=== PATIENT | female | born 1940 | race Caucasian/White ===

== ENCOUNTER → 2017-06-26 | Outpatient (CLI) | payer MEDICARE ==
[~2017-06-26] MED LIST: ALDACTONE 25MG25 MG PO; ALLOPURINOL100 MG PO; AMOXICOT500 MG PO; BISOPROLOL 5MG T5 MG PO; CLONAZEPAM0.5 MG PO; DAILY VITE1 TA2 PO; FLUOXETINE20 M2 PO; GLUCOSAMINE500 MG PO; Glucosamine500 MG PO; HUMULIN 70100 UNITS/ SC; HYDROCODONE BIT1 T39 PO; HYDROCODONE-APA1 TA2 PO; HYZAAR 12.5 MG-1 TA1 PO; INSULIN AS100 UNITS/ SC; Isosorbide Mono60 MG PO; KEFLEX 250MG.250 MG PO; KLOR-CON M2020 MEQ PO; LASIX20 MG PO; LIPITOR10 MG PO; LIQUID MAGNESI400 MG PO; MELOXICAM7.5 MG PO; METFORMIN 500M500 MG PO; METFORMIN ER500 MG PO; METOLAZONE2.5 MG PO; NEURONTIN 300M300 MG PO; NEURONTIN600 MG PO; NOVOLOG MI100 UNITS/ SC; NOVOLOG MI100 UNITS1 SC; PAXIL20 MG PO; PEDIA-LAX400 MG PO; PRAVASTATIN 40M40 MG PO; RISAQUAD1 CA1 PO; ROPINIROLE HYDRO1 MG PO; TORSEMIDE 20MG20 MG PO; TYLENOL ES500 MG PO; TYLENOL W/CODEI1 TA2 PO; VITAMIN B11000 MCG/M IM
== END ==
LOC: CARL-LAB 11:05
DX: E11.8 Type 2 diabetes mellitus with unspecified complications (principal)

== ENCOUNTER → 2017-08-06 | Outpatient (CLI) | payer MEDICARE ==
[2017-08-06 13:41] LABS: HEMOGLOBIN 14.1 g/dL (12.2-16.2); LYMPH # 1.6 K/mm3 (0.7-4.5); LYMPH % 28.9 % (10-50.0)
[2017-08-06 13:55] LABS: URINE BILIRUBIN - DIPSTICK NEGATIVE (NEG); URINE BLOOD NEGATIVE (NEG)
[2017-08-06 14:19] LABS: GFR (ESTIMATED) 26 ML/MIN (59-)
[2017-08-06 14:24] LABS: BUN 108 mg/dL (7-18)
== END ==
LOC: CARL-LAB 08:08
PROVIDERS: Internal Medicine Nephrology
DX: N18.4 Chronic kidney disease, stage 4 (severe) (principal)

== ENCOUNTER → 2017-08-29 | Outpatient (CLI) | payer MEDICARE ==
[2017-08-29 13:18] LABS: URINE BILIRUBIN - DIPSTICK NEGATIVE (NEG); URINE BLOOD NEGATIVE (NEG)
[2017-08-29 13:23] LABS: HEMOGLOBIN 13.5 g/dL (12.2-16.2); LYMPH # 1.7 K/mm3 (0.7-4.5); LYMPH % 28.9 % (10-50.0)
[2017-08-29 14:29] LABS: BUN 110 mg/dL (7-18)
[2017-08-29 14:30] LABS: GFR (ESTIMATED) 23 ML/MIN (59-)
== END ==
LOC: CARL-LAB 07:54
PROVIDERS: Internal Medicine Nephrology
DX: N18.4 Chronic kidney disease, stage 4 (severe) (principal); R82.90 Unspecified abnormal findings in urine

== ENCOUNTER → 2017-10-05 | Outpatient (CLI) | payer MEDICARE ==
--- NOTE | 2017-10-05 13:40 | CARDIOVASCULAR REPORT ---
"Venous Exam Indications: 729.5 Pain in limb. IMPRESSIONS 1. There is no evidence of significant Reflux. 2. No evidence of deep or superficial vein thrombosis involving the right lower extremity Right lower extremity venous duplex evaluation. Doppler flow study including spectral analysis, color and cannon scale imaging. Location: Vascular laboratory. Patient status: Outpatient. Tables: Venous flow and imaging: + +-------+ + + |Location |Overall|Flow properties |Comments | + +-------+ + + |Right common femoral |Patent |Normal phasicity; | | | | |spontaneous; normal | | | | |augmentation; | | | | |compressible | | + +-------+ + + |Right saphenofemoral |Patent |Compressible | | |junction | | | | + +-------+ + + |Right profunda femoral|Patent |Compressible | | + +-------+ + + |Right femoral |Patent |Normal phasicity; | | | | |spontaneous; normal | | | | |augmentation; | | | | |compressible | | + +-------+ + + |Right greater |Patent |Normal phasicity; | | |saphenous | |spontaneous; normal | | | | |augmentation; | | | | |compressible | | + +-------+ + + |Right popliteal |Patent |Normal phasicity; | | | | |spontaneous; normal | | | | |augmentation; | | | | |compressible | | + +-------+ + + |Right posterior tibial|Patent |Compressible |Small portion | | | | |unable to | | | | |visualize due to | | | | |edema. | + +-------+ + + |Right peroneal |Patent |Compressible |Small portion | | | | |unable to | | | | |visualize due to | | | | |edema. | + +-------+ + + |Right gastrocnemius |Patent |Compressible | | + +-------+ + + |Right soleal |Patent |Compressible | | + +-------+ + + (Report amended ) Electronically signed by: Shaun Hammer [id number]"
== END ==
LOC: RT 10:54
DX: M79.661 Pain in right lower leg (principal); R60.0 Localized edema

== ENCOUNTER → 2017-10-22 | Outpatient (CLI) | payer MEDICARE ==
[2017-10-22 17:40] LABS: HEMOGLOBIN 13.6 g/dL (12.2-16.2); LYMPH # 1.7 K/mm3 (0.7-4.5); LYMPH % 19.8 % (10-50.0)
[2017-10-22 20:26] LABS: BUN 88 mg/dL (7-18); GFR (ESTIMATED) 26 ML/MIN (59-)
--- NOTE | 2017-10-23 10:06 | RADIOLOGY REPORT PS360 ---
CHEST(2 VIEWS-NOT PORTABLE) HISTORY: Hypertension, chronic renal disease ENCOUNTER FOR PREPROCEDURAL CARDIOVASCULAR EXAM, TYPE 2 DI ORDERING PHYSICIAN: Inocencio Guardado MD PATIENT AGE: 77 years COMPARISON: 11/04/2014 FINDINGS: Unremarkable cardiovascular structures. There is chronic coarsening of bronchovascular markings suggesting chronic peribronchial inflammatory change.. The lungs are clear without infiltrates, suspicious nodules, or pleural effusions. No acute bony abnormalities. Interpedicular screws are present in the upper lumbar spine IMPRESSION: Chronic changes. No change with no acute finding.
== END ==
LOC: LAB 17:06
PROVIDERS: Internal Medicine
DX: E11.42 Type 2 diabetes mellitus with diabetic polyneuropathy (principal); I10 Essential (primary) hypertension; Z01.818 Encounter for other preprocedural examination